=== PATIENT | male | born 1975 | race Caucasian/White ===

== ENCOUNTER 2024-07-23 09:13 | Outpatient (AMB) | payer BC, SELFPAY ==
[2024-07-23 09:22] VITALS: BP 126/77; PULSE 82; RESP 18; TEMP 36.3; O2SAT 96; BMI 43.9
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
== END 2024-07-23 09:33 | disposition home or self-care (01) ==
LOC: HODSRG 09:13
PROVIDERS: PCP Nurse Practitioner Family; Referring Provider Nurse Practitioner Family; Supervising Provider Surgery; Visit Provider Surgery
DX: K43.2 Incisional hernia without obstruction or gangrene (principal); D36.9 Benign neoplasm, unspecified site
CPT/HCPCS: 99213; G0463

== ENCOUNTER → 2024-08-25 | Outpatient (CLI) | payer BC, SELFPAY ==
--- NOTE | 2024-08-25 14:17 | XR_ITS ---
Examination: CT abdomen with intravenous contrast CT pelvis with intravenous contrast 2-D coronal reconstructions 2-D sagittal reconstructions Date and time of exam:August 25, 2024 1445 hours Comparison June 19, 2022 INDICATIONS: Diagnosis incisional hernia history: Resection March 2023. CTDI: vol (mGy) 16.01 DLP: (mGycm) 1053 Technique: Multiple axial sections of the abdomen and pelvis have been obtained. 64 slice high-resolution scanner used. 3 mm axial sections have been obtained, post intravenous injection 60 cc [id number] 2-D sagittal, coronal reconstructions obtained. Low dose protocols were performed. One or more of the following dose reduction techniques were used; automated exposure control, adjustment of the mA and/or KV according to patient size, use of iterative reconstruction technique. Findings: No interval liver or splenic lesions No gallstones Supraumbilical hernia defect, 5 cm, containing transverse colon but no incarcerated bowel Slightly more caudad left supra umbilical hernia defect, 4.5 cm containing fat no bowel Umbilical hernia defect 35 mm containing small bowel but no incarcerated bowel Right lower lateral abdominal wall hernia defect, 7.1 cm, containing small bowel but no incarcerated bowel Bowel sutures in the pelvis No pericecal inflammatory change Contracted urinary bladder IMPRESSION: Multiple hernia defects as above, but no incarcerated bowel or bowel obstruction
== END | disposition home or self-care (01) ==
LOC: CCTX 14:04
PROVIDERS: PCP Nurse Practitioner Family; Referring Provider Surgery; Visit Provider Surgery
DX: K46.9 Unspecified abdominal hernia without obstruction or gangrene (principal)
CPT/HCPCS: 74177; A4649; Q9967

== ENCOUNTER 2024-09-01 07:40 | Day surgery (SDC) | payer BC, SELFPAY ==
[2024-08-31 12:49] VITALS: BMI 42.5
[2024-09-01] VITALS (11 sets, daily range): BP systolic 101–129; BP diastolic 66–83; PULSE 67–83; RESP 14–19; TEMP 36.2–36.7; O2SAT 94–98; BMI 43.9
[2024-09-01] MEDS: SODIUM CHLORIDE 0.9% 500 ML 500 ML 125 ML IV (09:07)
[2024-09-01] MEDS: DiphenhydrAMINE INJ 50 MG/ML VIAL 25 MG IV (09:12)
[2024-09-01] MEDS: MIDAZOLAM INJ 1 MG/ML VIAL 2 ML (ASD USE ONLY) 2 MG IV (09:15)
[2024-09-01] MEDS: fentaNYL CIT INJ 50 mCg/ML AMP 2ML (ASD USE ONLY) IV (09:22)
== END 2024-09-01 10:35 | disposition home or self-care (01) ==
PROVIDERS: PCP Nurse Practitioner Family; Referring Provider Surgery; Visit Provider Surgery
PROC: 0DBE8ZX Excision of Large Intestine, Via Natural or Artificial Opening Endoscopic, Diagnostic (ICD-10-PCS; CPT 45380; principal; 2024-09-01 09:15)
DX: Z12.11 Encounter for screening for malignant neoplasm of colon (principal); Z86.0101 Personal history of adenomatous and serrated colon polyps; D12.4 Benign neoplasm of descending colon; D12.2 Benign neoplasm of ascending colon; D12.3 Benign neoplasm of transverse colon; Z98.0 Intestinal bypass and anastomosis status; K57.30 Diverticulosis of large intestine without perforation or abscess without bleeding; K62.1 Rectal polyp
CPT/HCPCS: 45380; A4649; J1200; J2250; J3010; J7040

== ENCOUNTER 2024-09-07 15:24 | Outpatient (AMB) | payer BC, SELFPAY ==
[2024-09-07 15:35] VITALS: BP 123/68; PULSE 91; RESP 19; TEMP 36.3; O2SAT 94; BMI 44.1
--- NOTE | 2024-09-07 15:35 | PD.GSCLVISIT ---
Vital Signs - [facility] 09/07/24 15:35 Height 1.73 m Height Method Stated Weight 132.251 kg Weight Measurement Method Standing Scale BMI 44.1 BP 123/68 Blood Pressure Source Automatic Cuff Blood Pressure Location Left Upper Arm Position Sitting Respiration 19 Pulse 91 Pulse Source Monitor Temp 97.3 F Temp Source Temporal Artery Scan Pulse Oximetry (%) 94 L Oxygen Delivery Method Room Air Med/Allergies Allergies & Medications Allergies No Known Drug Allergies Allergy (Verified 09/07/24 15:36) Medication Reconciliation No Known Home Medications 09/01/24 [History Confirmed 09/07/24] MA Intake Visit Data Collection New Patient or Established: Established Patient (seen at [facility] within 3 years) Seen by Clinical Staff ONLY (RN/MA): No Reason for Visit:: COLONOSCOPY RESULTS Pain Present Currently: No PCP or OBGYN visit in last 3 months: Yes Smoking Status Smoking Status: Former smoker Immunization / Flu Flu Vaccine in the Last 12 Months: No Flu Vaccine Exclusion Criteria: No Exclusion Criteria Past Medical History Past Medical History NEUROLOGIC: Negative Neurological Disorders or Seizures CARDIAC: Positive Cardiac Disorders, Cardiac Arrhythmia and Hypercholesterolemia; Negative Congestive Heart Failure RESPIRATORY: Negative Chronic Obstructive Pulmonary Disease (COPD) or Asthma GASTROINTESTINAL: Positive Obesity; Negative Gastrointestinal Disorders GENITOURINARY: Positive Genitourinary Disorders and Kidney Stones; Negative Renal Disease MUSCULOSKELETAL: Positive Rheumatoid Arthritis ENDOCRINE: Negative Endocrine Disorders, Diabetes Mellitus Type 1 or Diabetes Mellitus Type 2 HEMATOLOGIC: Negative Blood Disorders or Sickle Cell Disease OTHER HISTORY: Positive Hospitalization; Negative Blood Transfusions, Blood Transfusion Reaction, Anesthesia Reactions, Chicken Pox, Measles, Mumps or Cancer Surgical History SURGICAL: Positive Tonsillectomy and Bowel Surgery (bowel resection) Social History SMOKING STATUS: Smoking status: Former smoker ALCOHOL: Alcohol Intake: Never HOUSING: Housing: House HPI HPI Narrative 49M with RA, large TVA of sigmoid colon s/p robotic converted to open sigmoidectomy with colorectal anastomosis 03/27/2023 here to discuss results of most recent surveillance colonoscopy. Pt reports feeling well overall with no complaints, colonoscopy showed multiple polyps two of which were tubular adenomas <1cm, while the remainder represented either normal or hyperplastic tissue ROS Review of Systems Systems Reviewed: All systems reviewed, normal except as documented Objective/Exam General General Appearance: alert, cooperative and well groomed Resp Respiratory exam: Absent respiratory distress Assessment & Plan Diagnosis / Problem List (1) Encounter to discuss colonoscopy results: Status: Acute Assessment & Plan: 49M with history of RA, large TVA requiring sigmoidectomy 03/2023 now s/p surveillance colonoscopy 08/2024 with findings of two tubular adenoma <1cm. Given his history I recommended repeat surveillance in 3 years (2) Incisional hernia: Status: Acute Assessment & Plan: Given the complexity of his incisional hernia with multiple defects and their sizes, I conferred with Dr Martinez as pt may need components separation. He confirmed he accepts pt's insurance and will kindly see him for possible repair Office Procedures GNS Level of Care Nursing/Assessment Patient Status: Established Patient Nursing Assessment/Reassesment: Medication Reconciliation, Update PMH in EMR and Vital Signs Coordination of Care: Complex Care and Chronic Disease 1-5, Consent,records obtained, informed consent, Education Simp Pt/Fam, Results/Orders obtained and Staff clarify orders Established Patient Charge Established Patient Point Assignment: 90 Established Patient Point Charge: EP Level 3 (80-115) Patient Portal Questionaires Social History Living Situation History Housing: House Tobacco History Smoking Status: Former smoker Alcohol History Alcohol Intake: Never Review of Systems Report any current symptoms Only answer those that you have currently: Past Medical History Past Medical History Have you ever been diagnosed with any of the following: Neurological Problems Seizures: No Cardiology Problems Cardiac Arrhythmia: Yes Hypercholesterolemia: Yes Congestive Heart Failure: No Respiratory Problems Chronic Obstructive Pulmonary Disease (COPD): No Asthma: No Stomache/Intestinal Problems Obesity: Yes Genital/Urinary Problems Renal Disease: No Kidney Stones: Yes Musculoskeletal Problems Rheumatoid Arthritis: Yes Endocrine Problems Diabetes Mellitus Type 1: No Diabetes Mellitus Type 2: No Blood Problems Sickle Cell Disease: No Other Problems Hospitalization: Yes Blood Transfusions: No Blood Transfusion Reaction: No Anesthesia Reactions: No Chicken Pox: No Measles: No Mumps: No Cancer: No
== END 2024-09-07 15:46 | disposition home or self-care (01) ==
LOC: HODSRG 15:24
PROVIDERS: PCP Nurse Practitioner Family; Referring Provider Nurse Practitioner Family; Supervising Provider Surgery; Visit Provider Surgery
DX: Z71.2 Person consulting for explanation of examination or test findings (principal); D12.6 Benign neoplasm of colon, unspecified; K43.2 Incisional hernia without obstruction or gangrene
CPT/HCPCS: 99213; G0463